=== PATIENT | male | born 1995 | race Two or more races ===

== ENCOUNTER 2020-07-30 16:20 | Outpatient (REF) | payer OTHER, SELFPAY ==
--- NOTE | 2020-07-30 16:29 | XR_ITS ---
EXAMINATION: XR KNEE, LEFT CLINICAL INFORMATION: Left knee pain COMPARISON: None TECHNIQUE: Four views of the left knee. FINDINGS: There is no fracture or subluxation. Compartmental joint spaces are maintained. There is no joint effusion. The soft tissues are unremarkable. XR/XR knee LT 4V IMPRESSION: Normal left knee.
== END 2020-07-30 16:21 | disposition home or self-care (01) ==
LOC: HO.HMGCX 16:20
PROVIDERS: PCP Internal Medicine; Visit Provider Internal Medicine
DX: M25.562 Pain in left knee (principal)
CPT/HCPCS: 73564

== ENCOUNTER 2020-08-06 10:15 | Outpatient (REF) | payer OTHER, SELFPAY ==
[2020-08-06 11:58] LABS: Alanine Aminotransferase 68 U/L (0-40); Anion Gap 10 (12-20); Aspartate Amino Transferase 36 U/L (5-37); Blood Urea Nitrogen 13 mg/dL (9-16); Carbon Dioxide 30 mmol/L (22-29); Chloride 104 mmol/L (96-108); Cholesterol 135 mg/dL; Estimated Glomerular Filt Rate > 60; Glucose Fasting 103 mg/dL (60-99); HDL Cholesterol 38 mg/dL; LDL Cholesterol Calculated 82 mg/dl; Potassium 4.4 mmol/l (3.3-5.1); Sodium 140 mmol/L (135-145); Triglycerides 79 mg/dL
[2020-08-06 12:05] LABS: TSH reflex Free T4 0.88 mIU/mL (0.32-4.0)
== END 2020-08-06 10:16 | disposition home or self-care (01) ==
LOC: HO.HMGCLDS 10:15
PROVIDERS: PCP Internal Medicine; Visit Provider Internal Medicine
DX: Z00.01 Encounter for general adult medical examination with abnormal findings (principal); E66.01 Morbid (severe) obesity due to excess calories; I10 Essential (primary) hypertension; Z80.8 Family history of malignant neoplasm of other organs or systems
CPT/HCPCS: 80048; 80061; 84443; 84450; 84460

== ENCOUNTER → 2020-09-29 08:49 | Outpatient (BNVA) | payer OTHER, SELFPAY | PROVIDERS: PCP Internal Medicine; Referring Provider Internal Medicine; Visit Provider Psychiatry & Neurology Neurology ==

== ENCOUNTER 2020-12-03 03:42 | Emergency (ER) | payer OTHER, SELFPAY ==
--- NOTE | ~2020-12-03 | CT_ITS ---
EXAMINATION: CT SOFT TISSUE NECK WITH CONTRAST CLINICAL INFORMATION: Evaluate for retropharyngeal abscess. COMPARISON: None TECHNIQUE: Following the intravenous administration of 100 mL of Omnipaque 350 intravenous contrast, helical imaging was performed in the axial plane with generation of coronal and sagittal reformatted images. This CT examination was performed using dose optimization techniques as appropriate, variously including the following: *Automated exposure control *Adjustment of mA and/or kV according to patient size (this includes techniques or standardized protocols for targeted exams where dose is matched to indication/reason for exam; i.e. extremities or head) *Use of iterative reconstruction technique DLP: 592 mGy-cm FINDINGS: There is prominence of the left palatine tonsil with thickening of the left pharyngeal mucosal resulting in mild asymmetric inward convexity of the left oral pharyngeal airway. No associated low-attenuation to suggest phlegmonous change. No associated pathologic enhancement. There is prominence of the nasopharyngeal lymphatic tissue as well as the soft palate which is within normal limits in a patient of this age. No retropharyngeal the collection or abscess. Epiglottis is normal. Minimal haziness present within the left parapharyngeal fat. Deep spaces of the neck are otherwise symmetric. No cervical adenopathy is identified. The parotid glands are homogeneous in attenuation. The submandibular glands are normal. The laryngeal structures are normal. The carotid sheath vasculature opacify normally. The thyroid gland is normal. The mastoid air cells and visualized portions of the paranasal sinuses are well-aerated. The temporomandibular joints are normal. No periapical disease is identified. No osseous abnormalities are seen. The imaged portions of the brain parenchyma are unremarkable. CT/CT soft tissue neck w con IMPRESSION: * Asymmetric prominence of the left palatine tonsil with thickening of the left pharyngeal mucosal space resulting in mild inward convexity of the left oropharyngeal muscle space. No low-attenuation changes to suggest phlegmon or abscess formation. * No retropharyngeal abscess. * Minimal reactive induration in the left parapharyngeal fat.
[2020-12-03 03:50] VITALS: BP 142/89; PULSE 77; RESP 16; TEMP 36.4; O2SAT 97; BMI 46.7
--- NOTE | 2020-12-03 04:38 | ED.URI ---
HPI - URI/Sore Throat General Chief Complaint: Upper Respiratory Symptoms Stated Complaint: Sore throat Time Seen by Provider: 12/03/20 04:37 Source: patient Mode of arrival: ambulatory History of Present Illness HPI Narrative: Negative strep test yesterday as per patient and having sore throat since Monday but denies any fevers or chills and was started on amoxicillin yesterday. However he was instructed to go to the emergency room if he developed any worsening of symptoms and he states that he has gotten worsen change in his voice. Related Data Home Medications Medication Instructions Recorded Confirmed No Known Home Meds 07/30/20 Allergies Allergy/AdvReac Type Severity Reaction Status Date / Time shellfish derived Allergy Vomiting Verified 12/03/20 03:55 Review of Systems Review of Systems: Pertinent positives and negatives as stated in HPI 10 point review of systems is otherwise negative. PMFSH Past Medical History Source: nursing notes reviewed Medical History Family history of thyroid cancer Left knee pain Morbid obesity ROBERTO CARLOS (obstructive sleep apnea) Surgical History Hx of tonsillectomy Family History Family History Mother Diabetes mellitus COPD (chronic obstructive pulmonary disease) Hyperlipemia Sister Hx of seizure disorder Sister Hx of seizure disorder Social History Social History Alcohol intake: current Smoking Status: Never smoker Advance Directives: No Physical Exam Vital Signs: Vital Signs: Last Vital Signs Temp 97.5 F 12/03/20 03:50 Pulse 77 12/03/20 03:50 Resp 16 12/03/20 03:50 BP 142/89 H 12/03/20 03:50 Pulse Ox 97 12/03/20 03:50 Body Mass Index 46.7 VITAL SIGNS: Reviewed. GENERAL: Well developed, well nourished, in no acute distress. HEAD: Normocephalic/atraumatic EYES: PERRLA, EOMI EARS: Ext canals without abnormality, TMs non-bulging and non-erythematous NOSE: Nares patent bilateral OROPHARYNX: no oral lesions noted, posterior pharynx clear, no trismus or pooling of secretions NECK: Supple, no adenopathy LUNGS: Normal breath sounds. No adventitious sounds or accessory muscle use. SpO2<97> CARDIOVASCULAR: Regular rate and rhythm without noted murmurs ABDOMEN: Obese, Soft, non-tender, non-distended with bowel sounds. NEUROLOGIC: Alert and oriented x 4. Course Course Course Narrative: This is a 25-year-old male with history and clinical presentation concerning for retropharyngeal abscess. Review of all investigations is negative for any evidence abscess. All results and findings were discussed with him at bedside and he was instructed to follow up with his primary care provider and continue with the antibiotics that he had been prescribed. MDM - URI/Sore Throat Lab Data Result diagrams: 12/03/20 04:59 12/03/20 04:59 Labs: Lab Results 12/03/20 12/03/20 Range/Units 04:59 04:59 WBC 10.8 (4.8-10.8) X10*3/uL RBC 5.31 (4.60-5.80) X10*6/uL Hgb 14.4 (14.0-18.0) g/dl Hct 43.6 (42-52) % MCV 82.1 (80-98) fL MCH 27.1 (27.0-33.0) pg MCHC 33.0 (31.0-36.0) g/dl RDW 12.1 (11.0-16.0) % Plt Count 232 (160-400) X10*3/uL MPV 10.7 (9.4-12.4) fL Immature Gran % (Auto) 0.4 (0.0-0.4) % Neut % (Auto) 71.8 (45-73) % Lymph % (Auto) 11.9 L (20-40) % Converse % (Auto) 12.5 H (2-11) % Eos % (Auto) 3.1 (0-4) % Baso % (Auto) 0.3 (0-2) % Lymph # (Auto) 1.3 (1.2-4.9) X10*3/uL [place]verse # (Auto) 1.4 H (0.1-1.2) X10*3/uL Eos # (Auto) 0.3 (0.0-0.4) X10*3/uL Baso # (Auto) 0.0 (0.0-0.2) X10*3/uL Abs Immat Gran (auto) 0.04 H (0.00-0.03) X10*3/uL Absolute Neuts (auto) 7.8 (2.0-8.3) X10*3/uL Absolute Nucleated RBC 0.000 (0.0-0.012) X10*3/uL Nucleated RBC % (auto) 0.0 (0.0-0.2) /100WBC Sodium 143 (135-145) mmol/L Potassium 4.0 (3.3-5.1) mmol/L Chloride 108 (96-108) mmol/L Carbon Dioxide 29 (22-29) mmol/L Anion Gap 10 L (12-20) BUN 15 (9-16) mg/dL Creatinine 0.81 (0.5-1.4) mg/dL Estim Creat Clear Calc 176.1 Estimated GFR > 60 Random Glucose 106 (60-115) mg/dL Calcium 8.7 (8.4-10.2) mg/dL Total Bilirubin 1.9 H (0.0-1.0) mg/dL AST 23 (5-37) U/L ALT 48 H (0-40) U/L Alkaline Phosphatase 83 (39-117) U/L Total Protein 6.3 L (6.5-8.0) g/dL Albumin 3.8 (3.5-5.0) g/dL Discharge Plan Discharge Clinical Impression: Pharyngitis Qualifiers: Pharyngitis/tonsillitis etiology: other specified organisms Qualified Code(s): J02.8 - Acute pharyngitis due to other specified organisms Patient Disposition: Home, Self-Care Instructions: Pharyngitis (ED) Additional Instructions: Resume all home medications, to include antibiotics. Please follow-up with your primary care provider today. Do not hesitate to return the emergency department should you develop any acute worsening of symptoms Prescriptions: No Action No Known Home Meds RF: 0 Referrals: Lulu Montana MD [Primary Care Provider] - 2 days (Re-evaluation of patient after being seen in the emergency department for sore throat.)
[2020-12-03 05:02] LABS: MANUAL DIFF FLAG NO
[2020-12-03 05:03] LABS: Basophils Percent Auto 0.3 % (0-2); Eosinophils Absolute Auto 0.3 X10*3/uL (0.0-0.4); Eosinophils Percent Auto 3.1 % (0-4); Hematocrit 43.6 % (42-52); Hemoglobin 14.4 g/dl (14.0-18.0); Imm Gran Abs Auto 0.04 X10*3/uL (0.00-0.03); Imm Gran Pct Auto 0.4 % (0.0-0.4); Lymphocytes Absolute Auto 1.3 X10*3/uL (1.2-4.9); Lymphocytes Percent Auto 11.9 % (20-40); Mean Corpuscular Hemoglobin 27.1 pg (27.0-33.0); Mean Corpuscular Volume 82.1 fL (80-98); Mean Platelet Volume 10.7 fL (9.4-12.4); Monocytes Absolute Auto 1.4 X10*3/uL (0.1-1.2); Monocytes Percent Auto 12.5 % (2-11); Neutrophils Absolute Auto 7.8 X10*3/uL (2.0-8.3); Neutrophils Percent Auto 71.8 % (45-73); Platelet Count 232 X10*3/uL (160-400); Red Blood Count 5.31 X10*6/uL (4.60-5.80); Red Cell Distribution Width 12.1 % (11.0-16.0); White Blood Count 10.8 X10*3/uL (4.8-10.8)
[2020-12-03 05:31] LABS: Alanine Aminotransferase 48 U/L (0-40); Albumin Level 3.8 g/dL (3.5-5.0); Alkaline Phosphatase 83 U/L (39-117); Anion Gap 10 (12-20); Aspartate Amino Transferase 23 U/L (5-37); Bilirubin Total 1.9 mg/dL (0.0-1.0); Blood Urea Nitrogen 15 mg/dL (9-16); Calcium 8.7 mg/dL (8.4-10.2); Carbon Dioxide 29 mmol/L (22-29); Chloride 108 mmol/L (96-108); Creatinine Clr Calc Pharmacy 176.1; Estimated Glomerular Filt Rate > 60; Glucose Random 106 mg/dL (60-115); Sodium 143 mmol/L (135-145); Total Protein 6.3 g/dL (6.5-8.0)
[2020-12-03] MEDS: iohexoL 350 MG/ML 100 ML INFUS..BTL 65 ML IV (06:18)
[2020-12-03] MEDS: Piperacillin Sodium/Tazobactam 3.375 GM in 0.9 % Sodium Chloride 50 ML IV (06:36)
== END 2020-12-03 07:54 | disposition home or self-care (01) ==
PROVIDERS: Emergency Provider Student in an Organized Health Care Education/Training Program; PCP Internal Medicine
DX: J02.8 Acute pharyngitis due to other specified organisms (principal)
CPT/HCPCS: 36415; 70491; 80053; 85025; 87071; 87880; 96365; 96375; 99283; 99284; J1100; J2543; Q9967

== ENCOUNTER 2021-09-05 13:56 | Emergency (ER) | payer OTHER, SELFPAY ==
--- NOTE | ~2021-09-05 | CT_ITS ---
EXAMINATION: HEAD CT WITHOUT CONTRAST CERVICAL SPINE CT WITHOUT CONTRAST CLINICAL INFORMATION: Fall, head injury COMPARISON: None. TECHNIQUE: Contiguous axial imaging of the head was performed without the administration of IV contrast. Axial multidetector volumetric images were also performed through the cervical spine without contrast. Multiplanar reconstructed images in coronal and sagittal orientations were submitted. DOSE: 1349 mGy-cm FINDINGS: HEAD: There is no evidence of acute intracranial hemorrhage or territorial infarction. No abnormal mass-effect or midline shift. No extra-axial fluid collections. Leal to white matter differentiation is well preserved. The ventricles are normal in size and configuration. . No acute osseous abnormality seen. Bilateral maxillary sinus mucosal thickening or mucocele. The remainder of the sinuses and mastoid air cells are clear. CERVICAL SPINE: Straightening of the spinal curvature. Mild rightward curvature of the spine in the coronal reconstructions.. Posterior alignment is maintained without subluxation. The cervical, adnexal articulation is maintained. Vertebral body heights are maintained. No acute fracture is seen. Lung apices are clear. CT/CT head/brain wo con IMPRESSION: 1. No CT evidence of acute intracranial pathology. 2. No CT evidence of acute fracture or malalignment in the cervical spine.
--- NOTE | ~2021-09-05 | XR_ITS ---
EXAMINATION: XR SHOULDER, RIGHT CLINICAL INFORMATION: Shoulder pain COMPARISON: None TECHNIQUE: AP external rotation, Grashey, scapular Y, and axillary views of the right shoulder. FINDINGS: The bones and soft tissues are normal. No fracture. Glenohumeral and acromioclavicular alignment is anatomic with normal joint space. No abnormal soft tissue calcifications. XR/XR shoulder RT min 2V IMPRESSION: Normal right shoulder.
--- NOTE | ~2021-09-05 | CT_ITS ---
EXAMINATION: HEAD CT WITHOUT CONTRAST CERVICAL SPINE CT WITHOUT CONTRAST CLINICAL INFORMATION: Fall, head injury COMPARISON: None. TECHNIQUE: Contiguous axial imaging of the head was performed without the administration of IV contrast. Axial multidetector volumetric images were also performed through the cervical spine without contrast. Multiplanar reconstructed images in coronal and sagittal orientations were submitted. DOSE: 1349 mGy-cm FINDINGS: HEAD: There is no evidence of acute intracranial hemorrhage or territorial infarction. No abnormal mass-effect or midline shift. No extra-axial fluid collections. Leal to white matter differentiation is well preserved. The ventricles are normal in size and configuration. . No acute osseous abnormality seen. Bilateral maxillary sinus mucosal thickening or mucocele. The remainder of the sinuses and mastoid air cells are clear. CERVICAL SPINE: Straightening of the spinal curvature. Mild rightward curvature of the spine in the coronal reconstructions.. Posterior alignment is maintained without subluxation. The cervical, adnexal articulation is maintained. Vertebral body heights are maintained. No acute fracture is seen. Lung apices are clear. CT/CT cervical spine wo con IMPRESSION: 1. No CT evidence of acute intracranial pathology. 2. No CT evidence of acute fracture or malalignment in the cervical spine.
[2021-09-05 14:45] VITALS: BP 144/89; PULSE 78; RESP 20; TEMP 35.7; O2SAT 98; BMI 46.7
--- NOTE | 2021-09-05 18:03 | ED_ITS ---
HPI - Neck Pain/Injury General Chief Complaint: Neck Pain/Injury Stated Complaint: Neck inj Time Seen by Provider: 09/05/21 17:43 Source: patient Mode of arrival: ambulatory Limitations: no limitations History of Present Illness HPI Narrative: 26-year-old male presents to the ED for posterior neck pain radiating down right arm. Patient states yesterday while playing with his daughter he fell off the sofa and fell directly on his posterior neck and ever since has had posterior neck pain radiating down right shoulder. Patient states every time he tried to turn his neck to the right he has pain. Patient denies any paralysis of right upper extremity. Patient denies any pain on the right side lateral or left lateral side of neck. Patient states having neck posterior pain radiating down right arm. Patient states he did hit head but denies any loss of consciousness. Patient denies any fever, chills, nausea, vomiting, or headache. Patient denies any chest pain, shortness of breath, abdominal pain, rectal bleeding, photophobia, nausea, or vomiting. Related Data Previous Rx's Medication Instructions Recorded cyclobenzaprine 10 mg tablet 10 mg PO TID PRN #18 tab 09/05/21 ketorolac 10 mg tablet 10 mg PO Q6H PRN 5 Days #20 tab 09/05/21 prednisone 20 mg tablet 40 mg PO DAILY 5 Days #10 tab 09/05/21 Allergies Allergy/AdvReac Type Severity Reaction Status Date / Time shellfish derived Allergy Vomiting Verified 12/03/20 03:55 Review of Systems Review of Systems: Posterior neck pain Yes all other systems are reviewed and are negative PMFSH Past Medical History Medical History Family history of thyroid cancer Left knee pain Morbid obesity ROBERTO CARLOS (obstructive sleep apnea) Surgical History Hx of tonsillectomy Family History Family History Mother Diabetes mellitus COPD (chronic obstructive pulmonary disease) Hyperlipemia Sister Hx of seizure disorder Sister Hx of seizure disorder Social History Social History Alcohol intake: current Advance Directives: No Advance Directives Information Provided: Yes Physical Exam Vital Signs: Vital Signs: Last Vital Signs Temp 96.3 F L 09/05/21 14:45 Pulse 78 09/05/21 14:45 Resp 20 09/05/21 14:45 BP 144/89 H 09/05/21 14:45 Pulse Ox 98 09/05/21 14:45 BMI result Body Mass Index 46.7 Const: General: cooperative, healthy appearing, comfortable, no acute distress, well developed, alert and awake Orientation/consciousness: patient oriented x3 HENMT: Head: Yes normal to inspection, Yes No palpable skull fracture present, Yes normocephalic and Yes atraumatic Eyes: General: appearance normal, both eyes and all related structures Neck: Other: Negative for any l tenderness, swelling, ecchymosis, or mass on the right lateral side of neck. Left lateral side of neck also negative for any tenderness, swelling, ecchymosis or mass. Anterior neck is normal negative for any swelling, ecchymosis, or mass. Patient has posterior neck pain on movement of right shoulder. Neck: Yes normal visual inspection, Yes full ROM, Yes no lymphadenopathy, Yes no meningeal signs, Yes trachea midline, Yes supple, No anterior neck swelling and Yes tender (positive for cervical posterior tend erness on palpation. ) Chest: Chest palpation & inspection: normal inspection of the chest and normal palpation of entire chest wall Resp: Effort & Inspection: normal respiratory effort and able to speak in complete sentences Cardio: Jugular venous distension: no JVD Heart sounds: S1 normal heart sound present and S2 normal heart sound present GI: Inspection: Yes normal to inspection and No abdominal wall ecchymosis Palpation (GI): Soft to palpation, not firm, nontender, no guarding and not rigid : General: No CVA tenderness and Yes no CVA tenderness Back/Spine/Pelvis: Back: no CVA tenderness, No CVA tenderness and No back tenderness Skin: General skin exam: no rashes or lesions noted and elasticity normal Neuro: General: patient oriented x3, gait normal, no meningeal signs and CN's II-XI intact bilaterally Cranial nerves: Yes CN's II-XII intact bilaterally Extrem: General: Yes normal to inspection and Yes full ROM Shoulder/upper arm images: 1. Tenderness on palpation. Negative for any ecchymosis deformity redness, or swelling. Motor exam limited due to pain but intact. Vascular and neuro exam intact Psych: Appearance: grossly normal, well kempt and not disheveled Course Course Course Narrative: Patient's neck pain only in posterior neck radiating down right shoulder. Negative for any tenderness or pain on right lateral left lateral side of neck. Not suspecting any carotid dissection. Will do cervical spine CT to evaluate for fracture or subluxation. Patient placed in soft collar and pain meds with steroids ordered Reevaluation(s) Reevaluation #1: Patient's images negative for any brain bleed, skull fracture, cervical fracture, or subluxation. Not suspecting any carotid dissection. Not suspecting any neck vascular injury. Patient will be discharged with pain medication, steroids, muscle relaxer. Once again patient only has posterior neck pain and negative for any lateral or anterior neck pain. Time: 19:20 MDM - Neck Pain/Injury MDM Narrative Medical decision making narrative: Cervical Sprain Discharge Plan Discharge Clinical Impression: Cervical sprain Patient Disposition: Home, Self-Care Instructions: Soft Cervical Collar (ED), Cervical Sprain (ED) Additional Instructions: Your CT scan came back negative for any brain bleed, skull fracture, cervical spine fracture or any cervical spine ligament injury. He will be discharged with pain medication, muscle relaxer, and steroids. You can use neck collar for comfort. Return to the ED immediately for neck swelling, shortness of breath, drooling, bluish black discoloration of neck, headache, photophobia, fever, chills, nausea, vomiting, paralysis of right upper extremity, or any other concerning symptoms. Prescriptions: New prednisone 20 mg tablet 40 mg PO DAILY 5 Days Qty: 10 RF: 0 cyclobenzaprine 10 mg tablet 10 mg PO TID PRN (Reason: muscle spasm) Qty: 18 RF: 0 ketorolac 10 mg tablet 10 mg PO Q6H PRN (Reason: pain) 5 Days Qty: 20 RF: 0 Stand Alone Forms: Work/School Release Interventions: ED Discharge Assessment Last Done: 09/05/21 20:01 Discharge Date/Time: 09/05/21 20:05 Print Language: Faroese
[2021-09-05] MEDS: Acetaminophen 325 MG TABLET 650 MG PO (18:32)
[2021-09-05] MEDS: predniSONE 20 MG TABLET 60 MG PO (18:33)
[2021-09-05] MEDS: Ketorolac Tromethamine 30 MG/ML VIAL IM (19:53)
== END 2021-09-05 20:05 | disposition home or self-care (01) ==
PROVIDERS: Emergency Provider Emergency Medicine; PCP Internal Medicine
DX: S13.4XXA Sprain of ligaments of cervical spine, initial encounter (principal); M79.601 Pain in right arm; G44.309 Post-traumatic headache, unspecified, not intractable; W08.XXXA Fall from other furniture, initial encounter; Y93.9 Activity, unspecified; Y92.009 Unspecified place in unspecified non-institutional (private) residence as the place of occurrence of the external cause; Y99.9 Unspecified external cause status; Z79.899 Other long term (current) drug therapy
CPT/HCPCS: 70450; 72125; 73030; 96372; 99284; J1885

== ENCOUNTER → 2022-03-03 09:07 | Outpatient (BNVA) | payer SELFPAY | PROVIDERS: PCP Internal Medicine; Visit Provider Physician Assistant Medical | DX: Z02.79 Encounter for issue of other medical certificate (principal) ==

== ENCOUNTER 2025-06-19 14:47 | Outpatient (REF) | payer OTHER, SELFPAY ==
--- OUTSIDE RECORDS SUMMARY | 2025-06-19 14:00 | XMS_ITS | Encounter Summary ---
Author Organization [employer] Address [address] [place] [address] 7 [place] [address] Care Team Providers Care Ride Operator Name Role Phone Ricardo Dial CNP Primary Care Provider [phone] Reason for Referral * Consultation (Routine) - Closed Specialty Diagnoses / Procedures Referred By Ginette lew Referred To Contact Allergy Diagnoses Encounter for physical examination Ricardo Dial CNP [address] [place] [address] Phone: tel: fax: Mark Cates MD [address] [place] [address] [address] [place] [address] Phone: tel: fax: Referral ID Status Reason Start Date Expiration Date V isits Requested Visits Authorized [id number] Closed Specialty Services Required 06/19/2025 06/19/2026 1 1 Encounter Details Date Type Department Care Team (Late st Contact Info) Description 06/19/2025 2:00 PM EDT Office Visit [facility] CHC MED & PEDS [address] [place], [place] [phone] Ricardo Dial CNP [address] [place], [place] [phone] Encounter for physical examination (Primary Dx); Obstructive [...] year old Employment/Education: Works 3 jobs,dialysis center, [employer] Diet/exercise: pt lives very active lifestyle takes [...] Health Maintenance Optometry: No, appointment requested at [facility] Dental: Yes ASCVD risk: [...] Description 07/31/2025 1:30 PM EST Office Visit [facility] MED & PEDS [address] [place] [address] Ricardo Dial CNP [address] [place] [address] Pending Results Name Type Priority Associated Diagnoses Date /Time Lipid Panel, Standard Lab Routine Encounter for physical examination 06/19/2025 2:57 PM EDT Basic Metabolic Panel Lab Routine Encounter for physical examination 06/19/2025 2:57 PM EDT Hepatic Function Panel Lab Routine Encounter for physical examination 06/19/2025 2:57 PM EDT Scheduled Orders Name Type Priority Associated Diagnoses Orde r Schedule Hemoglobin A1c Lab Routine Encounter for physical examination Expected: 06/19/2025 (Approximate), Expires: 06/19/2026 TSH W/Reflex to FT4 Lab Routine Encounter for physical examination Expected: 06/19/2025 (Approximate), Expires: 06/19/2026 Scheduled Referrals Name Type Priority Associated Diagnoses Orde r Schedule Referral to Allergy Outpatient Referral Routine Encounter for physical examination Expected: 06/19/2025 (Approximate), Expires: 06/19/2026 documented as of this encounter Procedures Procedure Name Priority Date/Time Associated Diagnosis Comments HEPATIC FUNCTION PANEL Routine 06/19/2025 2:57 PM EDT Encounter for physical examination LIPID PANEL, STANDARD Routine 06/19/2025 2:57 PM EDT Encounter for physical examination BASIC METABOLIC PANEL Routine 06/19/2025 2:57 PM EDT Encounter for physical examination documented in this encounter Visit Diagnoses Diagnosis [...] HTN documented in this encounter Care Teams Ride Operator Relationship Specialty Start Date End Date Ricardo Dial CNP [address] [place] [address] PCP - General Family Medicine 06/19/25 documented as of this encounter
[2025-06-19 18:32] LABS: Alanine Aminotransferase 46 U/L (0-40); Albumin Level 4.5 g/dL (3.5-5.0); Alkaline Phosphatase 75 U/L (39-117); Anion Gap 13 (12-20); Aspartate Amino Transferase 40 U/L (5-37); Blood Urea Nitrogen 16 mg/dL (9-16); Calcium 9.4 mg/dL (8.4-10.2); Carbon Dioxide 27 mmol/L (22-29); Chloride 107 mmol/L (96-108); Cholesterol 140 mg/dL (<200); Estimated Glomerular Filt Rate > 60; HDL Cholesterol 42 mg/dL (>40); Potassium 3.9 mmol/L (3.3-5.1); Sodium 143 mmol/L (135-145); Total Protein 7.5 g/dL (6.5-8.0); Triglycerides 76 mg/dL (<150)
--- OUTSIDE RECORDS SUMMARY | 2025-06-19 18:40 | XMS_ITS | Clinical Summary ---
Author Organization [facility] Address [address] [address] Care Team Providers Care Sports Therapist Name Role Phone Unavailable Primary Care Provider Unavailabl e Social History Tobacco Use Types Packs/Day Years Used Date Smoking Tobacco: Unknown Alcohol Use Standard Drinks/Week Comments No 0 (1 standard drink = 0.6 oz pur e alcohol) Sex and Gender Information Value Date Recorded Sex Assigned at Not on file Legal Sex Male 4:33 PM EST Gender Identity Not on file Sexual Orientation Not on file Last Filed Vital Signs Vital Sign Reading Time Taken Comments Blood Pressure 126/80 05/22/2019 12:00 PM EDT Pulse - - Temperature - - Respiratory Rate - - Oxygen Saturation - - Inhaled Oxygen Concentration - - Weight - - Height - - Body Mass Index - - Plan of Treatment Health Maintenance Due Date Last Done Comments Hepatitis B Vaccine (1 of 3 - 19+ 3-dose series) 2012 Influenza Vaccine (#1) 2025 Pneumococcal Vaccine: Peds ( 0 to 5 Years) and At-Risk Patients (6 to 49 Years) Aged Out No longer eligible b ased on patient's age to complete this topic
--- OUTSIDE RECORDS SUMMARY | 2025-06-19 18:40 | XMS_ITS | Encounter Summary ---
Author Organization [employer] Address [address] [place] [address] 7 [place] [address] Care Team Providers Care Tree Tapping Laborer Name Role Phone Ricardo Dial CNP Primary Care Provider [phone] Reason for Visit * Reason Comments Med Change Request Encounter Details Date Type Department Care Team ([facility] Contact Info) Description 06/19/2025 Refill [facility] MED & PEDS [address] [place], [place] [phone] Ricardo Dial CNP [address] [place] [address] Class 3 severe obesity due to excess calories without serious comorbidity with body mass index (BMI) of 40.0 to 44.9 in adult ([facility]) Social History Tobacco Use Types Packs/Day Years Used Date Smoking Tobacco: Never Assessed Sex and Gender Information Value Date Recorded Sex Assigned at Male 06/19/2025 1:12 PM EDT Legal Sex Male 1:00 PM EDT Gender Identity Male 06/19/2025 1:12 PM EDT Sexual Orientation Straight 06/19/2025 2: 49 PM EDT documented as of this encounter Plan of Treatment Upcoming Encounters Date Type Department Care Team ([facility] Contact Info) Description 07/31/2025 1:30 PM EST Office Visit [facility] MED & PEDS [address] [place] [address] Ricardo Dial CNP [address] [place] [address] documented as of this encounter Visit Diagnoses Diagnosis Class 3 severe obesity due to excess calories without serious comorbidity with body mass index (BMI) of 40.0 to 44.9 in adult (HCC) documented in this encounter Care Teams Tree Tapping Laborer Relationship Specialty Start Date End Date Ricardo Dial CNP [address] [place] [phone] PCP - General Family Medicine 06/19/25 documented as of this encounter
--- OUTSIDE RECORDS SUMMARY | 2025-06-19 18:40 | XMS_ITS | Encounter Summary ---
Author Organization [employer] Address [address] [facility] [address] [place] [address] Care Team Providers Care Dice Manager Name Role Phone Ricardo Dial CNP Primary Care Provider [phone] Encounter Details Date Type Department Care Team (Latest Contact Info) Description 06/19/2025 Travel Social History Tobacco Use Types Packs/Day Years [...] Description 07/31/2025 1:30 PM EST Office Visit [facility] MED & PEDS [address] [place] [address] Ricardo Dial CNP [address] [place] [address] documented as of this encounter Visit Diagnoses Not on filedocumented in this encounter Care Teams Dice Manager Relationship Specialty Start Date End Date Ricardo Dial CNP [address] [place] [address] PCP - General Family Medicine 06/19/25 documented as of this encounter
--- OUTSIDE RECORDS SUMMARY | 2025-06-19 18:40 | XMS_ITS | Clinical Summary ---
Author Organization [facility] Address [address] [place] [phone] Phone Care Team Providers Care Glove Brusher Name Role Phone Lulu Montana MD Primary Care Provider Social History Tobacco Use Types Packs/Day Years Used Date Smoking Tobacco: Never Assessed Education Answer Date Recorded Are you interested in more education? Not on luzma e 12/23/2022 Are you concerned about learning? Not on file 12/23/2022 No 12/23/2022 No 12/23/2022 Digital Access Answer Date Recorded No 01/21/2023 No 01/21/2023 No 01/21/2023 Reliable internet access at home? Not on file 01/21/2023 Device with a working camera? Not on file Sex and Gender Information Value Date Recorded Sex Assigned at Not on file Legal Sex Male 3:09 PM EDT Gender Identity Not on file Sexual Orientation Not on file Plan of Treatment Health Maintenance Due Date Last Done Comments DEPRESSION SCREENING 2005 SMOKING Hx and SMOKELESS TOBACCO SCREENING 2006 HEPATITIS C SCREENING 2011 HIV ONE-TIME SCREENING (18-6 5 YEARS) 2011 INFLUENZA VACCINE (#1) 2025 06/12/2020 COVID-19 VACCINE (3 - 2024-2 6 season) 2025 10/09/2020, 09/10/2020 Adult Td,Tdap Booster 07/30/2030 07/30/2020 HEPATITIS A VACCINES Aged Out No long er eligible based on patient's age to complete this topic HIB VACCINES Aged Out No longer eligi ble based on patient's age to complete this topic MENINGOCOCCAL VACCINES (ACWY) Aged Out No longer eligible based on patient's age to complete this topic MENINGOCOCCAL VACCINES (B) Aged Out N o longer eligible based on patient's age to complete this topic PNEUMOCOCCAL VACCINES (0-49 years) Aged Out No longer eligible b ased on patient's age to complete this topic Medical Devices Not on file Care Teams Glove Brusher Relationship Specialty Start Date End Date Lulu Montana MD [facility] [place] [address] PCP - General Internal Medicine 09/30/22 Additional Source Comments The information contained in this document represents components of the legal health record. It is not the complete legal health record.[facility]
--- OUTSIDE RECORDS SUMMARY | 2025-06-19 18:40 | XMS_ITS | Clinical Summary ---
Author Organization [employer] Address [address] [facility] 7t [place] [address] Care Team Providers Care Precipitate Washer Name Role Phone Ricardo Dial CNP Primary Care Provider [phone] Allergies Active Allergy Reactions Criticality Noted Date Comments Shrimp Extract 06/19/2025 Medications Tirzepatide-Elgin ght Management (Zepbound) 2.5 MG/0.5ML solution auto-injectorIn dications:Class 3 severe obesity due to excess calories without serious comorbidity with body mass index (BMI) of 40.0 to 44.9 in adult ([facility]) Inject 0.5 mL (2.5 mg) under the skin 1 (one) time per week. 2 mL 06/19/20 25 Active albuterol 108 (90 Base) MCG/ACT inhalerIndicati ons:Mild intermittent asthma without complication Inhale 2 puffs every 6 (six) hours if needed for wheezing or shortness of breath. 18 g 1 06/19/20 25 025 Active albuterol 108 (90 Base) MCG/ACT inhaler INHALE 2 PUFFS EVERY 4 TO 6 HOURS NEEDED FOR SHORTNESS OF BREATH OR FOR WHEEZE FOR 7 DAYS 10/09/19 25 025 Discontinued(Re order (will not trigger notification to Pharmacy)) Encounters Date Type Department Care Team Description 06/19/2025 2:00 PM EDT Office Visit [facility] [address] [place] [address] Ricardo Dial CNP Encounter for physical examination (Primary Dx); Obstructive sleep apnea; Class 3 severe obesity due to excess calories without serious comorbidity with body mass index (BMI) of 40.0 to 44.9 in adult ([facility]); Mild intermittent asthma without complication; Dietary counseling; Exercise counseling; Allergy, initial encounter; Elevated BP reading w/ no diagnosis of HTN 06/19/2025 Refill [facility] [address] [place] [address] Jayro RicardoMELODY Class 3 severe obesity due to excess calories without serious comorbidity with body mass index (BMI) of 40.0 to 44.9 in adult ([facility]) 06/19/2025 Travel 06/13/2025 Telephone [facility] [address] [place] [address] [place] chart prep from Last 3 Months Immunizations Immunization Administration Dates Next Due DTaP 05/07/2004, 4,1993,09/20 HPV, Quadrivalent 05/02/2012 Hep A, ped/adol, 2 dose 02/21/2011 Hep B, Adolescent or Pediatric 03/09/1994,1993,1993 Hib (HbOC) 03/09/1994,1993,1993 IPV 11/03/2008, 4,1993,09/20 Influenza injectable quadriv alent preservative free 06/16/2021 Influenza, IIV3, injectable 06/12/2020, 1 Influenza, Split (incl. shant fied surface antigen) 05/02/2012 MMR 04/14/2008,05/07/2004 Meningococcal MPSV4 03/22/2007 Tdap 07/30/2020,03/22/2007 Family History Medical History Relation Name Comments Diabetes Mother Thyroid cancer Sister Non Medullary Relation Name Status Comments Mother Sister Social History Tobacco Use Types Packs/Day Years Used Date Smoking Tobacco: Never Assessed Tobacco Cessation:Counseling Given: Not Answered Sex and Gender Information Value Date Recorded Sex Assigned at Male 06/19/2025 1:12 PM EDT Legal Sex Male 1:00 PM EDT Gender Identity Male 06/19/2025 1:12 PM EDT Sexual Orientation Straight 06/19/2025 2: 49 PM EDT Last Filed Vital Signs Vital Sign Reading [...] Mass Index 41.82 06/19/2025 1:58 PM EDT Plan of Treatment Upcoming Encounters Date Type Department Care Team ([facility] st Contact Info) Description 07/31/2025 1:30 PM EST Office Visit [facility] [address] [place], [place] [phone] Ricardo Dial, APARTMENT LEASING CONSULTANT [address] [place], [place] [phone] Health Maintenance Due Date Last Done Comments Depression Screening 1993 HIV Screening 1993 Lipid Panel 1993 06/19/2025 SDOH Screening 1993 Alcohol/Substance Use Screening 2005 Family Planning (PISQ) 2008 Hepatitis C Screening 2011 Hepatitis A Vaccines (2 of 2 - 2-dose series) 08/23/2011 02/21/2011 HPV Vaccines (2 - Male 3-dose series) 05/30/2012 05/02/2012 Pneumococcal Vaccine: Pediatrics (0 to 5 Years) and At-Risk Patients (6 to 49) Years (1 of 2 - PCV) 2012 COVID-19 Vaccine (3 - season) 2025 10/09/2020, 09/10/2020 Influenza Vaccine (#1) 2025 , 06/12/2020, 05/02/2012, Additional history exists Disability Screening 06/19/2026 06/19/2025 Tobacco Screening 06/19/2026 06/19/2025 DTaP/Tdap/Td Vaccines (7 - Td or Tdap) 07/30/2030 07/30/2020, 03/22/2007, 05/07/2004, Additional history exists Zoster Vaccines (1 of 2) 2043 RSV Patients and Patients Aged 60 years or older (1 - 1-dose 75+ series) 2068 HIB Vaccines Aged Out 03/09/1994, 11/27, 1993 No longer eligible based on patient's age to complete this topic Hepatitis B Vaccines Completed 03/09/1994, 1993, 1993 Meningococcal Vaccine Aged Out 03/22/2007 No patricia cassius eligible based on patient's age to complete this topic IPV Vaccines Completed 11/03/2008, 02/25, 1993, Additional history exists Meningococcal B Vaccine Aged Out No l onger eligible based on patient's age to complete this topic RSV under 20 months Aged Out No longe r eligible based on patient's age to complete this topic Rotavirus Vaccines Aged Out No longer eligible based on patient's age to complete this topic Procedures Procedure Name Priority Date/Time Associated Diagnosis Comments HEPATIC FUNCTION PANEL Routine 06/19/2025 2:57 PM EDT Encounter for physical examination BASIC METABOLIC PANEL Routine 06/19/2025 2:57 PM EDT Encounter for physical examination LIPID PANEL, STANDARD Routine 06/19/2025 2:57 PM EDT Encounter for physical examination from Last 3 Months Insurance [facility] NAVIGATE Care Teams Precipitate Washer Relationship Specialty Start Date End Date Ricardo Dial CNP [address] [place] [address] PCP - General Family Medicine 06/19/25
== END 2025-06-19 14:48 | disposition home or self-care (01) ==
LOC: HO.CHCLDS 14:47
DX: Z00.00 Encounter for general adult medical examination without abnormal findings (principal); Z13.1 Encounter for screening for diabetes mellitus; Z13.6 Encounter for screening for cardiovascular disorders; Z13.29 Encounter for screening for other suspected endocrine disorder
CPT/HCPCS: 36415; 80048; 80061; 80076; 83036; 84443

== ENCOUNTER 2025-06-24 16:04 | Outpatient (REF) | payer OTHER, SELFPAY ==
--- OUTSIDE RECORDS SUMMARY | 2025-06-19 14:00 | XMS_ITS | Encounter Summary ---
Author Organization [employer] Address [address] [place] [address] 7 [place] [address] Care Team Providers Care Cement Grinding Mill Operator Name Role Phone Ricardo Dial CNP Primary Care Provider [phone] [phone] Reason for Referral * Consultation (Routine) - Closed Specialty Diagnoses / Procedures Referred By Ginette lew Referred To Contact Allergy Diagnoses Encounter for physical examination Ricardo Dial CNP [address] [place] [address] Phone: tel: fax: Mark Cates MD [address] [place] [address] [address] [place] [address] Phone: tel: fax: Referral ID Status Reason Start Date Expiration Date V isits Requested Visits Authorized [id number] Closed Specialty Services Required 06/19/2025 06/19/2026 1 1 Encounter Details Date Type Department Care Team (Late st Contact Info) Description 06/19/2025 2:00 PM EDT Office Visit [facility] MED & PEDS [address] [place], [place] [phone] Ricardo Dial CNP [address] [place], [place] [phone] Encounter for physical examination (Primary Dx); Obstructive sleep apnea; Class 3 severe obesity due to excess calories without serious comorbidity with body mass index (BMI) of 40.0 to 44.9 in adult (HCC); Mild intermittent asthma without complication; Dietary counseling; Exercise counseling; Allergy, initial encounter; Elevated BP reading w/ no diagnosis of HTN Social History Tobacco Use Types Packs/Day Years Used Date Smoking Tobacco: Never Assessed Tobacco Cessation:Counseling Given: Not Answered Sex and Gender Information Value Date Recorded Sex Assigned at Male 06/19/2025 1:12 PM EDT Legal Sex Male 1:00 PM EDT Gender Identity Male 06/19/2025 1:12 PM EDT Sexual Orientation Straight 06/19/2025 2: 49 PM EDT documented as of this encounter Last Filed Vital Signs Vital Sign Reading Time Taken Comments Blood Pressure 132/90 06/19/2025 1:58 PM EDT Pulse 78 06/19/2025 1:58 PM EDT Temperature 36.3 C (97.3 F) 06/19/2025 1:58 PM EDT Respiratory Rate 16 06/19/2025 1:58 PM EDT Oxygen Saturation 99% 06/19/2025 1:58 PM EDT Inhaled Oxygen Concentration - - Weight 124 kg (273 lb) 06/19/2025 1:58 PM EDT Height 172.1 cm (5' 7.75 ) 06/19/2025 1:58 PM ED T Body Mass Index 41.82 06/19/2025 1:58 PM EDT documented in this encounter Progress Notes * Ricardo Dial CNP - 06/19/2025 2:00 PM EDT Subjective: Orion Garcia is a 29 y.o. male who presents to the office for a new patient visit. Previous PCP unknown. Interim history: History of ROBERTO CARLOS diagnosed around age 15, not compliant with CPAP Reports he was stung by a bee earlier this year and his whole leg was swollen, also reports allergyto shrimp. History of asthma, reports he has not needed an inhaler in years, denies current symptoms of wheezing or SOB. Current concerns: Weight Food/environmental allergies Problem List[1] Surgical History[2] Family History[3] Social History Living situation: Lives home with partner and 2 children, 2 and 5 year old Employment/Education: Works 3 jobs,dialysis center, [employer] Diet/exercise: pt lives very active lifestyle takes at least 14,000 steps daily Substance use: none Mental health: Reports some anxiety symptoms but does not report and depressive symptoms. Denies any safety concerns (SI/HI) at this time. Allergies[4] Review of Systems Vitals: 06/19/25 1358 BP: (!) 132/90 BP Location: Left arm Patient Position: Sitting BP Cuff Size: Large adult Pulse: 78 Resp: 16 Temp: 97.3 ??F (36.3 ??C) TempSrc: Oral SpO2: 99% Weight: 273 lb (124 kg) Height: 5' 7.75 (1.721 m) Physical Exam Vitals reviewed. Constitutional: General: He is not in acute distress. Appearance: Normal appearance. He is not ill-appearing, toxic-appearing or diaphoretic. HENT: Head: Normocephalic and atraumatic. Cardiovascular: Rate and Rhythm: Normal rate and regular rhythm. Pulses: Normal pulses. Heart sounds: Normal heart sounds. No murmur heard. No friction rub. No gallop. Pulmonary: Effort: Pulmonary effort is normal. No respiratory distress. Breath sounds: Normal breath sounds. No stridor. No wheezing, rhonchi or rales. Chest: Chest wall: No tenderness. Musculoskeletal: Right lower leg: No edema. Left lower leg: No edema. Neurological: General: No focal deficit present. Mental Status: He is alert and oriented to person, place, and time. Mental status is at baseline. Psychiatric: Mood and Affect: Mood normal. Behavior: Behavior normal. Thought Content: Thought content normal. Judgment: Judgment normal. Assessment & Plan Encounter for physical examination 29 y/o with asthma, ROBERTO CARLOS, obesity, and environmental allergies with normal physical exam 1. Anticipatory guidance discussed. Specific topics reviewed: drugs, ETOH, and tobacco, importance of regular dental care, importance of regular exercise, importance of varied diet, minimize junk food, and sex; STD and prevention as appropriate. 2. Age appropriate screenings discussed 3. Pt declines vaccinations today Routine Screening and Health Maintenance Optometry: No, appointment requested at [facility] Dental: Yes ASCVD risk: 29 y.o. male obese Lab Review: orders written for new lab studies as appropriate; see orders Orders: Lipid Panel, Standard; Future Basic Metabolic Panel; Future Hepatic Function Panel; Future Hemoglobin A1c; Future TSH W/Reflex to FT4; Future Referral to Allergy; Future Obstructive sleep apnea Stable Pt does not have any symptoms including choking, gasping, or nighttime waking due to respiratory symptoms. Class 3 severe obesity due to excess calories without serious comorbidity with body mass index (BMI) of 40.0 to 44.9 in adult (HCC) Pt is obese with history of comorbid conditions including asthma and sleep apnea, pt also has family history of diabetes. Pt has not been able to lose weight through lifestyle modifications and would benefit from GLP 1 medications for weight loss. Pt doesn't have any history of pancreatitis or a personal or family history of medullary thyroid cancer (MTC) or multiple endocrine neoplasia type 2 (MEN2). Today we discussed instructions for use, anticipated side effects, and routine monitoring to ensurestable healthy weight loss. I prescribed a multivitamin and also encouraged ongoing lifestyle modifications, see below. Dietary Recommendations: Fruits, vegetables, whole grains, protein foods, and fat-free or low-fat dairy products are healthychoices. Eat different types of protein foods in your diet. This can include seafood, lean meats, poultry, beans, peas, lentils, nuts, seeds, soy products, and eggs. Limit foods and beverages higher in added sugars, saturated fat, and sodium. Exercise Recommendations: At least 150 minutes of moderate-intensity physical activity per week, or an equivalent combinationof moderate- and vigorous-intensity activity Orders: Tirzepatide-Weight Management (Zepbound) 2.5 MG/0.5ML solution auto-injector; Inject 0.5 mL (2.5 mg) under the skin 1 (one) time per week. Mild intermittent asthma without complication Stable Will provide prescription for albuterol rescue inhaler for any symptom flare ups Orders: albuterol 108 (90 Base) MCG/ACT inhaler; Inhale 2 puffs every 6 (six) hours if needed for wheezing or shortness of breath. Dietary counseling See above Exercise counseling See above Allergy, initial encounter Referred for allergy testing Elevated BP reading w/ no diagnosis of HTN Lifestyle modifications advised Discussed low sodium diet Will recheck in office in 4-6 weeks Current Medications[5] Immunization History Administered Date(s) Administered DTaP 1993, 1993, 03/09/1994, 05/07/2004 HPV, Quadrivalent 05/02/2012 Hep A, ped/adol, 2 dose 02/21/2011 Hep B, Adolescent or Pediatric 1993, 1993, 03/09/1994 Hib (HbOC) 1993, 1993, 03/09/1994 IPV 1993, 1993, 03/09/1994, 11/03/2008 Influenza injectable quadrivalent preservative free 06/16/2021 Influenza, IIV3, injectable 04/18/2011, 06/12/2020 Influenza, Split (incl. purified surface antigen) 05/02/2012 MMR 05/07/2004, 04/14/2008 Meningococcal MPSV4 03/22/2007 Moderna Covid-19 Vaccine 12+ 09/10/2020, 10/09/2020 Tdap 03/22/2007, 07/30/2020 Follow up in about 6 weeks (around 07/31/2025) for f/u weight check . [1] There is no problem list on file for this patient. [2] No past surgical history on file. [3] Family History Problem Relation Name Age of Onset Diabetes Mother Thyroid cancer Sister Non Medullary [4] Allergies Allergen Reactions Shrimp Extract [5] Current Outpatient Medications Medication Sig Dispense Refill albuterol 108 (90 Base) MCG/ACT inhaler Inhale 2 puffs every 6 (six) hours if needed for wheezing or shortness of breath. 18 g 1 Tirzepatide-Weight Management (Zepbound) 2.5 MG/0.5ML solution auto-injector Inject 0.5 mL (2.5 mg)under the skin 1 (one) time per week. 2 mL 0 No current facility-administered medications for this visit. documented in this encounter Plan of Treatment Upcoming Encounters Date Type Department Care Team (Late st Contact Info) Description 07/31/2025 1:30 PM EST Office Visit [facility] MED & PEDS [address] [place] [address] Ricardo Dial CNP [address] [place], [place] [phone] Scheduled Referrals Name Type Priority Associated Diagnoses Orde r Schedule Referral to Allergy Outpatient Referral Routine Encounter for physical examination Expected: 06/19/2025 (Approximate), Expires: 06/19/2026 documented as of this encounter Procedures Procedure Name Priority Date/Time Associated Diagnosis Comments TSH W/REFLEX TO FT4 Routine 06/19/2025 2 :57 PM EDT Encounter for physical examination HEMOGLOBIN A1C Routine 06/19/2025 2:57 PM EDT Encounter for physical examination HEPATIC FUNCTION PANEL Routine 06/19/2025 2:57 PM EDT Encounter for physical examination LIPID PANEL, STANDARD Routine 06/19/2025 2:57 PM EDT Encounter for physical examination BASIC METABOLIC PANEL Routine 06/19/2025 2:57 PM EDT Encounter for physical examination documented in this encounter Results * TSH W/Reflex to FT4 (06/19/2025 2:57 PM EDT) TSH reflex Free T4 1.27 0.32 - 4.0 uIU/mL [facility] Blood Venous blood specimen / Unknown 06/19/2025 2:57 PM EDT 06/19/2025 5:50 PM EDT [facility] LAB BLOOD ORDERABLES Dara l Result [facility] [address] [place] [phone] * Hemoglobin A1c (06/19/2025 2:57 PM EDT) Hemoglobin A1c 5.4 <6.0 % [facility] Comment:Hemoglobin A1C Refer ence Range Adults: 4.8 - 6.0 % Non diabetic: < 6.0 % Goal: < 7.0 %Additional Action Suggested: > 8.0 %Note: Hemoglobin A1c results are invalid for patients with abnormal amounts of HbF. Blood transfusions may impact the HbA1c concentration in the patient sample. Estimated Average Glucose 108 mg/dL [facility] Comment:eAG = Estimated ave rage glucose which is %A1C expressed asaverage glucose, using the formula of the P4N-ZmgluxzMmovhfo Glucose study (ADAG), Diabetes Care, Vol.31,#8,Mar. 2007 Blood Venous blood specimen / Unknown 06/19/2025 2:57 PM EDT 06/19/2025 5:50 PM EDT [facility] LAB BLOOD ORDERABLES Dara l Result Performing Organization Address [facility] de Phone Number [facility] [address] [place] [address] [phone] * (ABNORMAL) Hepatic Function Panel (06/19/2025 2:57 PM EDT) Pathologist [facility] Bilirubin, Total 1.8(H) 0.0 - 1.0 mg/dL [facility] Comment:Slight Icterus. Bilirubin, Direct 0.5 0.0 - 0.5 mg/dL [facility] Comment:Slight Icterus. Aspartate Amino Transferase 40(H) 5 - 37 U/L [facility] Alanine Aminotransferase 46(H) 0 - 40 U/L [facility] Total Protein 7.5 6.5 - 8.0 g/dL [facility] Albumin Level 4.5 3.5 - 5.0 g/dL [facility] Alkaline Phosphatase 75 39 - 117 U/L [facility] Blood Venous blood specimen / Unknown 06/19/2025 2:57 PM EDT 06/19/2025 5:50 PM EDT Result [facility] LAB BLOOD ORDERABLES Dara l Result Performing Organization Address [facility] Co de Phone Number [facility] [address] [place] [address] [phone] * Basic Metabolic Panel (06/19/2025 2:57 PM EDT) Pathologist [facility] Sodium 143 135 - 145 mmol/L [facility] Potassium 3.9 3.3 - 5.1 mmol/L [facility] Chloride 107 96 - 108 mmol/L [facility] Carbon Dioxide 27 22 - 29 mmol/L [facility] Anion Gap 13 12 - 20 [facility] Urea Nitrogen (BUN) 16 9 - 16 mg/dL [facility] Creatinine, Serum 0.89 0.5 - 1.4 mg/dL [facility] Estimated Glomerular Filt Rate >60 [facility] Comment:Chronic Kidney Disea se: Estimated GFR < 60 mL/min/[id number] Kidney Disease: Estimated GFR < 15 mL/min/1.73m2 Glucose 87 60 - 115 mg/dL [facility] Calcium 9.4 8.4 - 10.2 mg/dL [facility] Blood Venous blood specimen / Unknown 06/19/2025 2:57 PM EDT 06/19/2025 5:50 PM EDT Ricardo Dial [facility] LAB BLOOD ORDERABLES Dara l Result [facility] [address] [place] [phone] * Lipid Panel, Standard (06/19/2025 2:57 PM EDT) Triglycerides 76 <150 mg/dL [facility] Comment:Desirable Triglyceri de: less than 150 mg/dLBorderline High Triglyceride 150-199 mg/dLHigh Triglyceride: 200-499 mg/dLVery High Triglyceride: greater than or equal to 5OO mg/dL Cholesterol 140 <200 mg/dL [facility] Comment:Desirable Cholestero l: less than 200 mg/dLBorderline High Cholesterol: 200-239 mg/dLHigh Cholesterol: greater than 239 mg/dL LDL Cholesterol Calculated 83 <100 mg/dL [facility] Comment:Desirable LDL: less than 100 mg/dLNear Optimal/Above Optimal LDL: 110- 129 mg/dLBorderline High LDL: 130-159 mg/dLHigh LDL: 160-189 mg/dLVery High LDL: greater than or equal to 190 mg/dL HDL Cholesterol 42 >40 mg/dL [facility] Comment:Desirable HDL: grea ter than 40 mg/dL Note: This HDL assay may give artificially low results in patients with liver disease. Blood Venous blood specimen / Unknown 06/19/2025 2:57 PM EDT 06/19/2025 5:50 PM EDT Ricardo Dial [facility] LAB BLOOD ORDERABLES Dara l Result [facility] [address] [place] [phone] [phone] documented in this encounter Visit Diagnoses Diagnosis Encounter for physical examination- Primary Obstructive sleep apnea Obstructive sleep apnea (adult) (pediatric) Class 3 severe obesity due to excess calories without serious comorbidity with body mass index (BMI) of 40.0 to 44.9 in adult (HCC) Mild intermittent asthma without complication Dietary counseling Dietary surveillance and counseling Exercise counseling Allergy, initial encounter Elevated BP reading w/ no diagnosis of HTN documented in this encounter Care Teams Cement Grinding Mill Operator Relationship Specialty Start Date End Date Ricardo Dial CNP [address] [place] [phone] PCP - General Family Medicine 06/19/25 documented as of this encounter
[2025-06-24 18:07] LABS: MANUAL DIFF FLAG NO
[2025-06-24 18:39] LABS: Iron 70 mcg/dL (45-160); Percent Iron Saturation 23 % (15-50); Total Iron Binding Capacity 308 mcg/dL (228-428); Unsaturated Iron Binding 238 ug/dL
[2025-06-24 18:49] LABS: Ferritin 148 ng/mL (20-250)
[2025-06-24 19:05] LABS: Hematocrit 44.2 % (42.0-52.0); Hemoglobin 14.7 g/dl (14.0-18.0); Imm Gran Abs Auto 0.02 X10*3/uL (0.00-0.03); Imm Gran Pct Auto 0.2 % (0.0-0.4); Lymphocytes Absolute Auto 1.7 X10*3/uL (1.2-4.9); Mean Corpuscular HGB Conc 33.3 g/dl (31.0-36.0); Mean Corpuscular Hemoglobin 27.3 pg (27.0-33.0); Mean Corpuscular Volume 82.2 fL (80.0-98.0); NRBC Abs Auto 0.000 X10*3/uL (0.0-0.012); NRBC Pct Auto 0.0 /100WBC (0.0-0.2); Platelet Count 265 X10*3/uL (160-400); Red Blood Count 5.38 X10*6/uL (4.60-5.80); White Blood Count 8.7 X10*3/uL (4.8-10.8)
--- OUTSIDE RECORDS SUMMARY | 2025-06-24 20:07 | XMS_ITS | Encounter Summary ---
Author Organization [employer] Address [address] [facility] 7t [place] [address] Care Team Providers Care Warehouse Distribution Manager Name Role Phone Ricardo Dial CNP Primary Care Provider [phone] Encounter Details Date Type Department Care Team ([facility] st Contact Info) Description 06/20/2025 Telephone [facility] MED[facility]INE [address] [place] [address] JayroRicardo CNP [address] [place], [place] [phone] Social History Tobacco Use Types Packs/Day Years Used Date Smoking Tobacco: Never Assessed Sex and Gender Information Value Date Recorded Sex Assigned at Male 06/19/2025 1:12 PM EDT Legal Sex Male 1:00 PM EDT Gender Identity Male 06/19/2025 1:12 PM EDT Sexual Orientation Straight 06/19/2025 2: 49 PM EDT documented as of this encounter Miscellaneous Notes * Telephone Encounter - Shreya Aly RN - 06/23/2025 1:11 PM EDT Called pt regarding message, spoke to pt. Pt requesting results of most recent labs done on 06/19. Advised that these results go to the PCP and are fully reviewed with any recommendations or further orders. Advised that as soon as they have been reviewed, we will call him back regarding the results. Pt understands and agrees with plan. * Telephone Encounter - Sandra Mathews - 06/20/2025 2:51 PM EDT Tc from pt requesting a call back with lab results. Lab completed on 06/19/24. documented in this encounter Plan of Treatment Upcoming Encounters Date Type Department Care Team (Late st Contact Info) Description 07/31/2025 1:30 PM EST Office Visit [facility] MED & PEDS [address] [place] [address] Ricardo Dial CNP [address] [place] [address] documented as of this encounter Visit Diagnoses Not on filedocumented in this encounter Care Teams Warehouse Distribution Manager Relationship Specialty Start Date End Date Ricardo Dial CNP [address] [place] [address] PCP - General Family Medicine 06/19/25 documented as of this encounter
--- OUTSIDE RECORDS SUMMARY | 2025-06-24 20:07 | XMS_ITS | Clinical Summary ---
Author Organization [facility] Address [address] [address] Care Team Providers Care Public Health Doctor Name Role Phone Unavailable Primary Care Provider [...]
--- OUTSIDE RECORDS SUMMARY | 2025-06-24 20:07 | XMS_ITS | Encounter Summary ---
Author Organization [employer] Address [address] [place] [address] [address] [place] [address] Care Team Providers Care Noodle Press Operator Name Role Phone Ricardo Dial CNP Primary Care Provider [phone] Reason for Visit * Reason Comments Med Change Request Encounter Details Date Type Department Care Team ([facility] Contact Info) Description 06/23/2025 Refill [facility] MED & PEDS [address] [place], [place] [phone] Ricardo Dial CNP [address] [place] [address] Class 3 severe obesity due to excess calories without serious comorbidity with body mass index (BMI) of 40.0 to 44.9 in adult ([facility]) Social History Tobacco Use Types Packs/Day [...] Upcoming Encounters Date Type Department Care Team ([facility] Contact Info) Description 07/31/2025 1:30 PM EST Office Visit [facility]S [address] [place], [place] [phone] Ricardo Dial CNP [address] [place] [address] documented as of this encounter Visit Diagnoses Diagnosis Class 3 severe obesity due to excess calories without serious comorbidity with body mass index (BMI) of 40.0 to 44.9 in adult (HCC) documented in this encounter Care Teams Noodle Press Operator Relationship Specialty Start Date End Date Ricardo Dial CNP [address] [place] [phone] PCP - General Family Medicine 06/19/25 documented as of this encounter
--- OUTSIDE RECORDS SUMMARY | 2025-06-24 20:07 | XMS_ITS | Clinical Summary ---
Author Organization [employer] Address [address] [facility] 7[address] [place] [address] Care Team Providers Care Flight Software Test Engineer Name Role Phone Ricardo Dial CNP Primary Care Provider [phone] Allergies Active Allergy Reactions Criticality Noted Date Comments Shrimp Extract 06/19/2025 Medications Tirzepatide-Elgin ght Management (Zepbound) 2.5 MG/0.5ML solution auto-injectorIn dications:Class 3 severe obesity due to excess calories without serious comorbidity with body mass index (BMI) of 40.0 to 44.9 in adult ([facility]) Inject 0.5 mL (2.5 mg) under the [...] Encounters Date Type Department Care Team Description 06/23/2025 Refill [facility] PEDS [address] [place], [place] [phone] Ricardo Dial CNP Class 3 severe obesity due to excess calories without serious comorbidity with body mass index (BMI) of 40.0 to 44.9 in adult ([facility]) 06/20/2025 Telephone [facility] MEDICINE [address] [place] [address] Ricardo Dial CNP 06/20/2025 Results Follow-Up [facility] MED & PEDS [address] [place] [address] Ricardo Dial CNP Lipid Panel, Standard, Basic Metabolic Panel, Hepatic Function Panel, Additional followed-up results: 2 06/19/2025 2:00 PM EDT Office Visit [facility] MED [facility] PEDS [address] [place] [address] Ricardo Dial CNP Encounter for physical examination (Primary Dx); Obstructive sleep apnea; Class 3 severe obesity due to excess calories without serious comorbidity with body mass index (BMI) of 40.0 to 44.9 in adult ([facility]); Mild intermittent asthma without complication; Dietary counseling; Exercise counseling; Allergy, initial encounter; Elevated BP reading w/ no diagnosis of HTN 06/19/2025 Refill [facility] PEDS [address] [place] [address] Ricardo Dial CNP Class 3 severe obesity due to excess calories without serious comorbidity with body mass index (BMI) of 40.0 to 44.9 in adult (HCC) 06/19/2025 Travel 06/13/2025 Telephone [facility] MED [facility] PEDS [address] [place] [address] Yonis [place], [place] chart prep from Last 3 Months [...] Upcoming Encounters Date Type Department Care Team ([facility] st Contact Info) Description 07/31/2025 1:30 PM EST Office Visit [facility] PEDS [address] [place] [address] DialRicardo, NURSING TEACHER [address] [place] [address] Health Maintenance Due Date Last Done Comments Depression Screening 1993 HIV Screening 1993 SDOH Screening 1993 Alcohol/Substance Use Screening 2005 [...] Screening 06/19/2026 06/19/2025 Tobacco Screening 06/19/2026 06/19/2025 Lipid Panel 06/19/2030 06/19/2025 DTaP/Tdap/Td Vaccines (7 - Td or [...] Procedure Name Priority Date/Time Associated Diagnosis Comments FERRITIN Routine 06/24/2025 4:06 PM EDT Transaminitis IRON AND TOTAL IRON BINDING CAPACITY Routine 06/24/2025 4:06 PM EDT Transaminitis CBC WITH AUTO DIFFERENTIAL Routine 06/24/2025 4:06 PM EDT Transaminitis TSH W/REFLEX TO FT4 Routine 06/19/2025 2 [...] for physical examination from Last 3 Months Results * CBC auto differential (06/24/2025 4:06 PM EDT) White Blood Count 8.7 4.8 - 10.8 X10*3/uL [facility] Red Blood Count 5.38 4.60 - 5.80 X10*6/uL [facility] Hemoglobin 14.7 14.0 - 18.0 g/dl [facility] Hematocrit 44.2 42.0 - 52.0 % [facility] Mean Corpuscular Volume 82.2 80.0 - 98.0 fL [facility] Mean Corpuscular Hemoglobin 27.3 27.0 - 33.0 pg [facility] Mean Corpuscular HGB Conc 33.3 31.0 - 36.0 g/dl [facility] Red Cell Distribution Width 12.3 11.0 - 16.0 % [facility] Platelet Count 265 160 - 400 X10*3/uL [facility] Mean Platelet Volume 11.5 9.4 - 12.4 fL [facility] Neutrophils Percent Auto 66.3 45 - 73 % [facility] Imm Gran Pct Auto 0.2 0.0 - 0.4 % [facility] Lymphocytes Percent Auto 20.0 20 - 40 % [facility] Monocytes Percent Auto 9.3 2 - 11 % [facility] Eosinophils Percent Auto 3.9 0 - 4 % [facility] Basophils Percent Auto 0.3 0 - 2 % [facility] NRBC Pct Auto 0.0 0.0 - 0.2 /100WBC [facility] Neutrophils Absolute Auto 5.8 2.0 - 8.3 x10*3/uL [facility] Imm Gran Abs Auto 0.02 0.00 - 0.03 X10*3/uL [facility] Lymphocytes Absolute Auto 1.7 1.2 - 4.9 X10*3/uL [facility] Monocytes Absolute Auto 0.8 0.1 - 1.2 X10*3/uL [facility] Eosinophils Absolute Auto 0.3 0.0 - 0.4 X10*3/uL [facility] Basophils Absolute Auto 0.0 0.0 - 0.2 X10*3/uL [facility] NRBC Abs Auto 0.000 0.0 - 0.012 X10*3/uL [facility] Blood Venous blood specimen / Unknown 06/24/2025 4:06 PM EDT 06/24/2025 6:04 PM EDT [facility] LAB BLOOD ORDERABLES Dara l Result Performing Organization Address City/[facility] Co de Phone Number [facility] [address] [place] [phone] * Iron And Total Iron Binding Capacity (06/24/2025 4:06 PM EDT) Iron 70 45 - 160 mcg/dL [facility] Total Iron Binding Capacity 308 228 - 428 mcg/dL [facility] Percent Iron Saturation 23 15 - 50 % [facility] Unsaturated Iron Binding 238 ug/dL [facility] Blood Venous blood specimen / Unknown 06/24/2025 4:06 PM EDT 06/24/2025 6:04 PM EDT [facility] LAB BLOOD ORDERABLES Dara l Result Performing Organization Address City/[facility]/ZIP Co de Phone Number [facility] [address] [place] [phone] * Ferritin (06/24/2025 4:06 PM EDT) Ferritin 148 20 - 250 ng/mL [facility] Blood Venous blood specimen / Unknown 06/24/2025 4:06 PM EDT 06/24/2025 6:04 PM EDT [facility] LAB BLOOD ORDERABLES Dara l Result Performing Organization Address [facility] Co de Phone Number [facility] [address] [place] [phone] * TSH W/Reflex to FT4 (06/19/2025 2:57 PM EDT) Pathologist [facility] TSH reflex Free T4 1.27 0.32 - 4.0 uIU/mL [facility] Blood Venous blood specimen / Unknown 06/19/2025 2:57 PM EDT 06/19/2025 5:50 PM EDT [facility] LAB BLOOD ORDERABLES Dara l Result Performing Organization Address [facility] de Phone Number [facility] [address] [place] [phone] * Hemoglobin A1c (06/19/2025 2:57 PM EDT) Hemoglobin A1c 5.4 <6.0 % [facility] Comment:Hemoglobin A1C Refer ence Range Adults: 4.8 - 6.0 % Non diabetic: < 6.0 % Goal: < 7.0 %Additional Action Suggested: > 8.0 %Note: Hemoglobin A1c results are invalid for patients with abnormal amounts of HbF. Blood transfusions may impact the HbA1c concentration in the patient sample. Estimated Average Glucose 108 mg/dL [facility] Comment:eAG = Estimated ave rage glucose which is %A1C expressed asaverage glucose, using the formula of the [id number] Glucose study (ADAG), Diabetes Care, Vol.31,#8,Aug. 2007 Blood Venous blood specimen / Unknown 06/19/2025 2:57 PM EDT 06/19/2025 5:50 PM EDT Result [facility] LAB BLOOD ORDERABLES Dara l Result Performing Organization Address [facility] Co de Phone Number [facility] [address] [place] [phone] * (ABNORMAL) Hepatic Function Panel (06/19/2025 2:57 PM EDT) Bilirubin, Total 1.8(H) 0.0 - 1.0 mg/dL [facility] Comment:Slight Icterus. Bilirubin, Direct 0.5 0.0 - 0.5 mg/dL [facility] Comment:Slight Icterus. Aspartate Amino Transferase 40(H) 5 - 37 U/L [facility] Alanine Aminotransferase 46(H) 0 - 40 U/L [facility] Total Protein 7.5 6.5 - 8.0 g/dL [facility] Albumin Level 4.5 3.5 - 5.0 g/dL [facility] Alkaline Phosphatase 75 39 - 117 U/L [facility] Blood Venous blood specimen / Unknown 06/19/2025 2:57 PM EDT 06/19/2025 5:50 PM EDT Result [facility] LAB BLOOD ORDERABLES Dara l Result Performing Organization Address City/[facility]/ZIP Co de Phone Number [facility] [address] [place] [phone] * Lipid Panel, Standard (06/19/2025 2:57 PM EDT) Triglycerides 76 <150 mg/dL [facility] Comment:Desirable Triglyceri de: less than 150 mg/dLBorderline High Triglyceride 150-199 mg/dLHigh Triglyceride: 200-499 mg/dLVery High Triglyceride: greater than or equal to 5OO mg/dL Cholesterol 140 <200 mg/dL [facility] Comment:Desirable Cholestero l: less than 200 mg/dLBorderline High Cholesterol: 200-239 mg/dLHigh Cholesterol: greater than 239 mg/dL LDL Cholesterol Calculated 83 <100 mg/dL [facility] Comment:Desirable LDL: less than 100 mg/dLNear Optimal/Above Optimal LDL: 110- 129 mg/dLBorderline High LDL: 130-159 mg/dLHigh LDL: 160-189 mg/dLVery High LDL: greater than or equal to 190 mg/dL HDL Cholesterol 42 >40 mg/dL [facility] Comment:Desirable HDL: great er than 40 mg/dL Note: This HDL assay may give artificially low results in patients with liver disease. Blood Venous blood specimen / Unknown 06/19/2025 2:57 PM EDT 06/19/2025 5:50 PM EDT [facility] LAB BLOOD ORDERABLES Dara l Result [facility] [address] [place] [phone] * Basic Metabolic Panel (06/19/2025 2:57 PM EDT) Sodium 143 135 - 145 mmol/L [facility] Potassium 3.9 3.3 - 5.1 mmol/L [facility] Chloride 107 96 - 108 mmol/L [facility] Carbon Dioxide 27 22 - 29 mmol/L [facility] Anion Gap 13 12 - 20 [facility] Urea Nitrogen (BUN) 16 9 - 16 mg/dL [facility] Creatinine, Serum 0.89 0.5 - 1.4 mg/dL [facility] Estimated Glomerular Filt Rate >60 [facility] Comment:Chronic Kidney Disea se: Estimated GFR < 60 mL/min/1.20b0Rcewxz Kidney Disease: Estimated GFR < 15 mL/min/1.73m2 Glucose 87 60 - 115 mg/dL [facility] Calcium 9.4 8.4 - 10.2 mg/dL [facility] Blood Venous blood specimen / Unknown 06/19/2025 2:57 PM EDT 06/19/2025 5:50 PM EDT Ricardo Dial CNP LAB BLOOD ORDERABLES Dara white Result [facility] [address] [place] [phone] from Last 3 Months Insurance [facility] NAVIGATE Care Teams Flight Software Test Engineer Relationship Specialty Start Date End Date Ricardo Dial CNP [address] [place] [phone] PCP - General Family Medicine 06/19/25
--- OUTSIDE RECORDS SUMMARY | 2025-06-24 20:07 | XMS_ITS | Encounter Summary ---
Author Organization [employer] Address [address] [place] [address] [address] [place] [address] Care Team Providers Care Kitchen And Bath Designer Name Role Phone Ricardo Dial CNP Primary Care Provider [phone] Reason for Referral * Imaging (Routine) - Authorized Specialty Diagnoses / Procedures Referred By Ginette lew Referred To Contact Radiology Diagnoses Transaminitis Procedures US Abdomen Complete Ricardo Dial CNP [address] [place] [address] Phone: tel: fax: [address] Phone: tel: fax: Referral ID Status Reason Start Date Expiration Date V isits Requested Visits Authorized [id number] Authorized 06/24/2025 06/24/2026 1 1 Reason for Visit * Reason Onset Date Comments Results 06/20/2025 Encounter Details Date Type Department Care Team ([facility] st Contact Info) Description 06/20/2025 Results Follow-Up [facility] [address] [place] [address] Ricardo Dial CNP [address] [place] [address] Lipid Panel, Standard, Basic Metabolic Panel, Hepatic Function Panel, Additional followed-up results: 2 Social History Tobacco Use Types Packs/Day Years Used Date Smoking Tobacco: Never Assessed Sex and Gender Information Value Date Recorded Sex Assigned at Male 06/19/2025 1:12 PM EDT Legal Sex Male 1:00 PM EDT Gender Identity Male 06/19/2025 1:12 PM EDT Sexual Orientation Straight 06/19/2025 2: 49 PM EDT documented as of this encounter Miscellaneous Notes * Result Encounter Note - Ricardo Dial CNP - 06/24/2025 1:06 PM EDT Thank you, this could very much be the cause for the elevation in liver enzymes, we will proceed with current plan and work on decreasing alcohol intake. * Telephone Encounter - Kathy Tucker RN - 06/24/2025 10:23 AM EDT TC to pt to review results and advised of additional testing. Pt denies regular APAP intake. Pt does report alcohol intake on weekends and up to 24 pack of beer. Advised will communicate with PCP as FYI for decision making. Advised pt will be contacted to schedule US and advised of locations and hours for labs and advised will communicate results when reviewed. Pt verbalized understanding and agreement with plan. * Telephone Encounter - Kathy Tucker RN - 06/24/2025 10:23 AM EDT ----- Message from Ricardo Dial sent at 06/24/2025 8:57 AM EDT ----- Good morning, Pt liver function was mildly abnormal. We will further evaluate this by getting an USof liver and some additional lab work. Otherwise all other labs are normal. Please let him know he can complete bloodwork anytime before follow up it doesn't need to be fasting. As for the US, he will be contacted to schedule. Let me know if any questions. Thanks! ----- Message ----- From: Interface, Lab Results In Sent: 06/19/2025 6:33 PM EDT To: Ricardo Dial CNP * Result Encounter Note - Ricardo Dial CNP - 06/24/2025 8:57 AM EDT Good morning, Pt liver function was mildly abnormal. We will further evaluate this by getting an USof liver and some additional lab work. Otherwise all other labs are normal. Please let him know he can complete bloodwork anytime before follow up it doesn't need to be fasting. As for the US, he will be contacted to schedule. Let me know if any questions. Thanks! documented in this encounter Plan of Treatment Upcoming Encounters Date Type Department Care Team (Late st Contact Info) Description 07/31/2025 1:30 PM EST Office Visit [facility] [address] [place] [address] Ricardo Dial CNP [address] [place] [address] Scheduled Orders Name Type Priority Associated Diagnoses Orde r Schedule Hepatitis C Antibody with Reflex to HCV, RNA, Quantitative, Real-Time PCR Lab Routine Transaminitis Expected: 06/24/2025, Expires: 06/24/2026 Hepatitis B Surface Antibody, Qualitative Lab Routine Transaminitis Expected: 06/24/2025 (Approximate), Expires: 06/24/2026 Hepatitis B Core Antibody, Total Lab Routine Transaminitis Expected: 06/24/2025 (Approximate), Expires: 06/24/2026 Hepatitis B surface antigen, EIA Lab Routine Transaminitis Expected: 06/24/2025 (Approximate), Expires: 06/24/2026 US Abdomen Complete Imaging Routine Transaminitis Expected: 06/24/2025, Expires: 06/24/2026 documented as of this encounter Procedures Procedure Name Priority Date/Time Associated Diagnosis Comments CBC WITH AUTO DIFFERENTIAL Routine 06/24/2025 4:06 PM EDT Transaminitis IRON AND TOTAL IRON BINDING CAPACITY Routine 06/24/2025 4:06 PM EDT Transaminitis FERRITIN Routine 06/24/2025 4:06 PM EDT Transaminitis documented in this encounter Results * Ferritin (06/24/2025 4:06 PM EDT) Pathologist [facility] Ferritin 148 20 - 250 ng/mL [facility] Blood Venous blood specimen / Unknown 06/24/2025 4:06 PM EDT 06/24/2025 6:04 PM EDT Result [facility] LAB BLOOD ORDERABLES Dara l Result Performing Organization Address [facility] Co de Phone Number [facility] [address] [place] [phone] * Iron And Total Iron Binding Capacity (06/24/2025 4:06 PM EDT) Pathologist [facility] Iron 70 45 - 160 mcg/dL [facility] Total Iron Binding Capacity 308 228 - 428 mcg/dL [facility] Percent Iron Saturation 23 15 - 50 % [facility] Unsaturated Iron Binding 238 ug/dL [facility] Blood Venous blood specimen / Unknown 06/24/2025 4:06 PM EDT 06/24/2025 6:04 PM EDT Result [facility] LAB BLOOD ORDERABLES Dara l Result Performing Organization Address [facility] de Phone Number [facility] [address] [place] [phone] * CBC auto differential (06/24/2025 4:06 PM EDT) Pathologist [facility] White Blood Count 8.7 4.8 - 10.8 X10*3/uL [facility] Red Blood Count 5.38 4.60 - 5.80 X10*6/uL [facility] Hemoglobin 14.7 14.0 - 18.0 g/dl [facility] Hematocrit 44.2 42.0 - 52.0 % [facility] Mean Corpuscular Volume 82.2 80.0 - 98.0 fL [facility] Mean Corpuscular Hemoglobin 27.3 27.0 - 33.0 pg [facility] Mean Corpuscular HGB Conc 33.3 31.0 - 36.0 g/dl [facility] Red Cell Distribution Width 12.3 11.0 - 16.0 % [facility] Platelet Count 265 160 - 400 X10*3/uL [facility] Mean Platelet Volume 11.5 9.4 - 12.4 fL [facility] Neutrophils Percent Auto 66.3 45 - 73 % [facility] Imm Gran Pct Auto 0.2 0.0 - 0.4 % [facility] Lymphocytes Percent Auto 20.0 20 - 40 % [facility] Monocytes Percent Auto 9.3 2 - 11 % [facility] Eosinophils Percent Auto 3.9 0 - 4 % [facility] Basophils Percent Auto 0.3 0 - 2 % [facility] NRBC Pct Auto 0.0 0.0 - 0.2 /100WBC [facility] Neutrophils Absolute Auto 5.8 2.0 - 8.3 x10*3/uL [facility] Imm Gran Abs Auto 0.02 0.00 - 0.03 X10*3/uL [facility] Lymphocytes Absolute Auto 1.7 1.2 - 4.9 X10*3/uL [facility] Monocytes Absolute Auto 0.8 0.1 - 1.2 X10*3/uL [facility] Eosinophils Absolute Auto 0.3 0.0 - 0.4 X10*3/uL [facility] Basophils Absolute Auto 0.0 0.0 - 0.2 X10*3/uL [facility] NRBC Abs Auto 0.000 0.0 - 0.012 X10*3/uL [facility] Blood Venous blood specimen / Unknown 06/24/2025 4:06 PM EDT 06/24/2025 6:04 PM EDT Ricardo Dial [facility] BLOOD ORDERABLES Dara l Result [facility] [address] [place] [phone] documented in this encounter Visit Diagnoses Diagnosis Transaminitis- Primary Nonspecific elevation of levels of transaminase or lactic acid dehydrogenase (LDH) documented in this encounter Care Teams Kitchen And Bath Designer Relationship Specialty Start Date End Date Ricardo Dial CNP [address] [place] [phone] PCP - General Family Medicine 06/19/25 documented as of this encounter
--- OUTSIDE RECORDS SUMMARY | 2025-06-24 20:07 | XMS_ITS | Clinical Summary ---
Author Organization Former[facility] Address [address] [place] [phone] Phone Care Team Providers Care Senior Administrator Support Name Role Phone Lulu Montana MD Primary [...] Medical Devices Not on file Care Teams Senior Administrator Support Relationship Specialty Start Date End Date Lulu Montana MD [facility] [place] [address] PCP - General Internal Medicine 09/30/22 Additional Source Comments The information contained in this document represents components of the legal health record. It is not the complete legal health record.[facility]ly [facility]
--- OUTSIDE RECORDS SUMMARY | 2025-06-24 20:07 | XMS_ITS | Encounter Summary ---
Author Organization [employer] Address [address] [facility] 7 [place] [address] Care Team Providers Care Gerentological Physiotherapist Name Role Phone Ricardo Dial CNP Primary Care Provider [phone] Encounter Details Date Type Department Care Team [...] Description 07/31/2025 1:30 PM EST Office Visit [facility] PEDS [address] [place] [address] Ricardo Dial CNP [address] [place] [address] documented as of this encounter Visit Diagnoses Not on filedocumented in this encounter Care Teams Gerentological Physiotherapist Relationship Specialty Start Date End Date Ricardo Dial CNP [address] [place] [address] PCP - General Family Medicine 06/19/25 documented as of this encounter
--- OUTSIDE RECORDS SUMMARY | 2025-06-24 20:07 | XMS_ITS | Encounter Summary ---
Author Organization [employer] Address [address] [place] [address] [address] [place] [address] Care Team Providers Care Medical Registrar Name Role Phone Ricardo Dial CNP Primary Care Provider [phone] Reason for Visit * Reason Comments Med Change Request Encounter Details Date Type Department Care Team ([facility] Contact Info) Description 06/19/2025 Refill [facility] & PEDS [address] [place], [place] [phone] Ricardo Dial CNP [address] [place], [place] [phone] Class 3 severe obesity due to excess calories without serious comorbidity with body mass index (BMI) of 40.0 to 44.9 in adult (HCC) Social History Tobacco Use Types Packs/Day Years Used Date Smoking Tobacco: Never Assessed Sex and Gender Information Value Date Recorded Sex Assigned at Male 06/19/2025 1:12 PM EDT Legal Sex Male 1:00 PM EDT Gender Identity Male 06/19/2025 1:12 PM EDT Sexual Orientation Straight 06/19/2025 2: 49 PM EDT documented as of this encounter Miscellaneous Notes * Telephone Encounter - Ricardo Dial CNP - 06/23/2025 10:15 AM EDT Message sent to team PA specialist to generate PA for this medication. documented in this encounter Plan of Treatment Upcoming Encounters Date Type Department Care Team ([facility] Contact Info) Description 07/31/2025 1:30 PM EST Office Visit [facility] PEDS [address] [place] [address] Ricardo Dial CNP [address] [facility] [place] [address] documented as of this encounter Visit Diagnoses Diagnosis Class 3 severe obesity due to excess calories without serious comorbidity with body mass index (BMI) of 40.0 to 44.9 in adult (HCC) documented in this encounter Care Teams Medical Registrar Relationship Specialty Start Date End Date Ricardo Dial CNP [address] [facility] [place] [address] PCP - General Family Medicine 06/19/25 documented as of this encounter
[2025-06-25 08:27] LABS: HBS Num1 6.84 mIU/mL (0-7.99); HBc Num1 0.17 S/CO (0.00-0.79); HBsAGNum1 0.44 S/CO (0.00-0.99); Hepatitis B Surface Antigen Negative (Negative); ~HepC Num1 0.23 S/CO (0.00-0.79); ~Hepatitis B Surface Antibody NONREACTIVE (Nonreactive); ~Hepatitis C Antibody Nonreactive (Nonreactive)
== END 2025-06-24 16:05 | disposition home or self-care (01) ==
LOC: HO.CHCLDS 16:04
DX: R74.01 Elevation of levels of liver transaminase levels (principal)
CPT/HCPCS: 36415; 82728; 83540; 85025; 86704; 86706; 86803; 87340